=== PATIENT | female | born 1955 | race Two or more races ===

== ENCOUNTER → 2018-02-26 | Outpatient (CLI) | payer OTHER | LOC: MAMMO 10:55 | PROVIDERS: ATTEND Family Medicine | DX: Z12.31 Encounter for screening mammogram for malignant neoplasm of breast (principal) | CPT/HCPCS: 77067 ==

== ENCOUNTER → 2020-01-14 | Outpatient (CLI) | payer OTHER ==
--- NOTE | 2020-01-14 09:56 | Diagnostic Imaging Report ---
Exam: Bone mineral density study. History: Postmenopausal status, osteoporosis screening Comparison: None Discussion: Evaluation of the left hip and lumbar spine was performed . The study is technically adequate. The patient's fracture risk is compared to an age-matched control. The patient denies prior surgery/fracture of the spine, hips or forearm. Left hip femoral neck bone mineral density: 0.945 g/cm2, T-score is 0.9, Z-score is 2.4. Left hip total bone mineral density: 1.043 g/cm2, T-score is 0.8, Z-score is 2.1. Lumbar spine total bone mineral density: 1.094 gm/cm2, T-score is 0.4, Z-score is 2.2. Impression: 1. Bone mineralization by WHO Classification of the left hip is normal, the fracture risk is not increased. 2. Bone mineralization by WHO Classification of the lumbar spine is normal, the fracture risk is not increased. Signed by: Dr. Joe Rider MD on 01/14/2020 9:52 AM
== END ==
LOC: MAMMO 08:34
PROVIDERS: ATTEND Family Medicine
DX: Z12.31 Encounter for screening mammogram for malignant neoplasm of breast (principal); N95.9 Unspecified menopausal and perimenopausal disorder
CPT/HCPCS: 77067; 77080